=== PATIENT | female | born 1985 | race Caucasian/White ===

== ENCOUNTER 2020-05-24 13:21 | Emergency (ER) | payer OTHER, SELFPAY ==
[2020-05-24 14:18] VITALS: BP 133/88; PULSE 87; RESP 18; TEMP 36.5; O2SAT 100
[2020-05-24 15:27] VITALS: BP 122/78; PULSE 70; RESP 18; TEMP 36.7; O2SAT 99
[2020-05-24] MEDS: CYCLOBENZAPRINE HCL 10 MG TABLET PO (15:52)
[2020-05-24] MEDS: KETOROLAC 30 MG/ML VIAL (*BKC) IV PUSH (15:52)
[2020-05-24] MEDS: methylPREDNISolone SOD SUCC 125 MG VIAL IV PUSH (15:52)
--- NOTE | 2020-05-24 16:04 | ED.BACK ---
HPI - Back Pain/Injury General Chief Complaint: Back Pain/Injury Stated Complaint: sciatica in my leg Time Seen by Provider: 05/24/20 15:29 Source: patient Mode of arrival: ambulatory Limitations: no limitations History of Present Illness HPI Narrative: This is a 34 year old female who presents for evaluation right buttock pain. She reports she woke up with pain last night. She has sharp shooting pain to right buttock that radiates down her leg to right calf. She has taken Tylenol for her pain without relief. She had similar pain a few years ago and it was diagnosed as sciatica. She denies leg weakness, numbness or tingling. She denies recent back injury. She denies abdominal pain, nausea, vomiting or fever. Related Data Allergies Allergy/AdvReac Type Severity Reaction Status Date / Time No Known Allergies Allergy Verified 04/14/14 08:49 Review of Systems Review of Systems: All systems reviewed & are unremarkable except as noted in HPI and below PMFSH Past Medical History Medical History (Updated 05/25/20 @ 00:00 by Michael Bentley) Anxiety Depression Hypothyroid Surgical History Surgical History (Updated 05/24/20 @ 16:07 by Maty Olivera MD) H/O section Social History Social History (Updated 05/24/20 @ 16:08 by Maty Olivera MD) Smoking status: Never smoker Gender identity (if verbalized by the patient): Male Exam Const: General: alert Orientation/consciousness: patient oriented x3 Eyes: EOM: EOMs intact bilaterally Resp: Effort & Inspection: normal respiratory effort and no retractions Auscultation: clear to auscultation bilaterally Cardio: Rate: regular rate Rhythm: regular rhythm Heart sounds: no murmurs GI: GI Palp: Yes Soft to palpation, No Tenderness to palpation present (GI) and No Guarding due to palpation present (GI) Auscultation: normal bowel sounds Skin: General skin exam: normal color Rashes: no rashes Neuro: General: patient oriented x3, moves all extremities and CN's II-XI intact bilaterally Extrem: Other: FROM Psych: Mental Status: mental status grossly normal Affect: normal affect Course Reevaluation(s) Reevaluation #1: Patient is resting comfortably in bed. She is in no acute distress. I d iscussed with patient that is likely sciatica and I discussed discharge plan. Date: 05/24/20 Time: 17:52 Vital Signs Vital signs: Vital Signs Temperature 97.7 F 05/24/20 14:18 Pulse Rate 87 05/24/20 14:18 Respiratory Rate 18 05/24/20 14:18 Blood Pressure 133/88 05/24/20 14:18 Pulse Oximetry 100 05/24/20 14:18 Temperature 98.0 F 05/24/20 15:27 Pulse Rate 78 05/24/20 18:59 Respiratory Rate 18 05/24/20 18:59 Blood Pressure 132/78 05/24/20 18:59 Pulse Oximetry 99 05/24/20 18:59 Discharge Plan Discharge Clinical Impression: Sciatica Qualifiers: Laterality: right Qualified Code(s): M54.31 - Sciatica, right side Patient Disposition: Home, Self-Care Condition: Stable Instructions: Sciatica (ED), Back Pain (ED), Lower Back Exercises (ED) Additional Instructions: You need to follow up with your primary care physician for further evaluation . tAke medication as prescribed. Prescriptions: New ibuprofen 600 mg tablet 600 mg PO Q6H PRN (Reason: pain) Qty: 20 RF: 0 methylprednisolone [Medrol (Yordan)] 4 mg tablets,dose pack See Rx Instructions .ROUTE .COMPLEX Qty: 21 RF: 0 oxycodone-acetaminophen 5-325 mg tablet 1 tablet PO Q6H PRN (Reason: pain) Qty: 7 RF: 0 Follow-up/Referrals: Simi Quiroga DO [Physician] - PHYSICIAN,[employer] [Primary Care Provider] -
[2020-05-24] MEDS: HYDROmorphone HCL INJ (*CRX) 1 MG/ML SYR IV PUSH (16:56)
[2020-05-24 18:59] VITALS: BP 132/78; PULSE 78; RESP 18; O2SAT 99
== END 2020-05-24 19:05 | disposition home or self-care (01) ==
PROVIDERS: Emergency Provider General Practice
DX: M54.31 Sciatica, right side (principal)
CPT/HCPCS: 96374; 96375; 99284; A9270; J1170; J1885; J2930

== ENCOUNTER 2021-01-31 10:38 | Emergency (ER) | payer OTHER, SELFPAY ==
--- NOTE | ~2021-01-31 | US_ITS ---
EXAMINATION: US OB <=14 wk fetus w TV DATE: 01/31/2021 12:46 INDICATION: Bleeding during early first trimester of . TECHNIQUE: Real-time pelvic ultrasound utilizing both a transvaginal and transabdominal probe was pe rformed. The interpreting radiologist was not present for the study. COMPARISON: None. FINDINGS: The uterus measures 9.8 x 7.7 x 7.8 cm. The endometrial complex is thickened to 2.8 cm at the fundus with heterogeneous echogenicity. There is a 5 mm anechoic possible gestational sac with double decid ua sign evident along the margin of the thickened endometrial complex on the transverse and sagittal cine images which could represent an early gestational sac. The right ovary measures 3.2 x 2.4 x 1.9 cm. Vascular flow with arterial waveforms identified in the right ovary on color Doppler. The left ovary is not visualized. There is a trace amount of free fluid along side the right ovary. IMPRESSION: 1. Thickened heterogeneous endometrial complex with irregular hypoechoic regions which could represen t some hemorrhage within the endometrial canal. Suggestion of a 5 mm gestational sac at the periphera l margins of the endometrial complex with double decidua sign but no discernible internal yolk sac or pole likely due to very early stage of . Recommend follow-up with serial beta-hCG lev els with repeat imaging as clinically indicated. Reviewed, dictated and finalized at location A. INUING EDUCATION SPECIALIST IMPRESSION: 1. Thickened heterogeneous endometrial complex with irregular hypoechoic region s which could represent some hemorrhage within the endometrial canal. Suggestio n of a 5 mm gestational sac at the peripheral margins of the endometrial comple x with double decidua sign but no discernible internal yolk sac or pole l ikely due to very early stage of . Recommend follow-up with serial bet a-hCG levels with repeat imaging as clinically indicated.
[2021-01-31 10:55] VITALS: BP 126/91; PULSE 93; RESP 16; TEMP 36.8; O2SAT 99
[2021-01-31 11:30] LABS: Basophils Percent Auto 0.6 % (0.2-1.2); Eosinophils Absolute Auto 0.1 K/mm3 (0-0.3); Eosinophils Percent Auto 1.7 % (0-4.4); Hematocrit 34.1 % (37.0-47.0); Immature Granulocyte Absolute 0.03 K/mm3 (0.00-0.031); Immature Granulocyte Percent A 0.4 % (0-0.5); Lymphocytes Absolute Auto 2.41 K/mm3 (0.9-3.2); Lymphocytes Percent Auto 33.1 % (18.3-44.2); Mean Corpuscular HGB Conc 32.3 g/dl (32-36); Mean Corpuscular Hemoglobin 26.9 pg (26-34); Mean Corpuscular Volume 83.4 fl (80-100); Mean Platelet Volume 9.6 fl (7.4-10.4); Monocytes Absolute Auto 0.4 K/mm3 (0.1-0.6); Monocytes Percent Auto 5.1 % (2.6-8.5); Neutrophils Absolute Auto 4.3 K/mm3 (1.3-6.7); Neutrophils Percent Auto 59.1 % (45.5-73.1); Platelet Count Result 211 k/mm3 (150-375); Red Blood Count 4.09 M/mm3 (4.2-5.4); White Blood Count 7.3 K/mm3 (4.5-10.0)
[2021-01-31 11:41] LABS: Prothrombin Time 13.2 Seconds (11.1-14.7)
[2021-01-31 11:42] LABS: Partial Thromboplastin Time 28.1 SECONDS (22.3-36.8)
--- NOTE | 2021-01-31 11:56 | ED.PREGNANCY ---
HPI - General Chief complaint: Vaginal Bleeding Stated complaint: 5 wks preg vag bleed Time Seen by Provider: 01/31/21 10:54 Source: patient Mode of arrival: ambulatory Limitations: no limitations History of Present Illness HPI Narrative: This is a 35-year-old female that presents to the emergency department for abnormal uterine bleeding. Reports she started having light spotting on the ninth of this month. This has continued since. She saw an UTILITY ENGINEER yesterday who did a test that was positive. This was a new doctor for her. Her previous OB is no longer practicing. She had an order to get an ultrasound done, but was unable to make an appointment until the middle of February which concerned her and prompted her to be seen today. This would be her fourth . Denies pelvic pain. Related Data Home Medications Medication Instructions Recorded Confirmed No Home Medications 01/31/21 01/31/21 Allergies Allergy/AdvReac Type Severity Reaction Status Date / Time No Known Allergies Allergy Verified 01/31/21 11:47 Review of Systems Review of Systems: CONSTITUTIONAL: Denies fever GASTROINTESTINAL: Denies abdominal pain, nausea, vomiting GENITOURINARY: Denies dysuria All systems reviewed & are unremarkable except as noted in HPI and below PMFSH Past Medical History Medical History (Updated 01/31/21 @ 14:01 by Jenny Squires PA-C) Anxiety Depression Hypothyroid Surgical History Surgical History (Updated 05/24/20 @ 16:07 by Maty Olivera MD) H/O section Social History Social History (Updated 05/24/20 @ 16:08 by Maty Olivera MD) Smoking status: Never smoker Gender identity (if verbalized by the patient): Male Exam Narrative: GENERAL: Well-appearing, well-nourished, and in no acute distress. HEAD: Normocephalic, atraumatic. EYES: EOMI. CHEST: Clear to auscultation. No respiratory distress. No wheezes rales or rhonchi HEART: Regular rate and rhythm. No murmur heard. Normal peripheral pulses. ABDOMEN: Soft, nontender, nondistended, normal active bowel sounds. EXTREMITIES: Normal range of motion. No edema. SKIN: Warm, dry, no rash. NEURO: No focal deficits. Alert and oriented x3. PSYCH: Normal mood and affect PELVIC: Normal-appearing cervix, closed. Small amount of dark red blood in the vaginal vault Course Vital Signs Vital signs: Vital Signs Temperature 98.3 F 01/31/21 10:55 Pulse Rate 93 01/31/21 10:55 Respiratory Rate 16 01/31/21 10:55 Blood Pressure 126/91 H 01/31/21 10:55 Pulse Oximetry 99 01/31/21 10:55 Temperature 98.3 F 01/31/21 10:55 Pulse Rate 93 01/31/21 10:55 Respiratory Rate 16 01/31/21 10:55 Blood Pressure 126/91 H 01/31/21 10:55 Pulse Oximetry 99 01/31/21 10:55 MDM - OB/Uterine Contractions MDM Narrative Medical decision making narrative: Patient presents to the emergency department for abnormal uterine bleeding. Reports she has had spotting since the th of this month. She saw a new UTILITY ENGINEER yesterday and had a positive test. Was given a prescription for ultrasound, but was unable to obtain this for another couple of weeks which prompted her to be seen today. She is afebrile and nontoxic-appearing. Exam is benign. Her vitals are stable. CBC does show normocytic anemia with hemoglobin of 11. Patient is O+. Small amount of dark red blood in the vaginal vault. Obstetric ultrasound shows thickened heterogenous endometrial complex. Suggestion of a 5 mm gestational sac at the peripheral margins. No discernible yolk sac or pole. Likely due to early stage of . Recommend follow-up with serial beta hCG levels and imaging. Patient was updated on case findings. Patient will be given a prescription for quantitative beta-hCG in 48 hours. Was instructed to follow back up with her UTILITY ENGINEER. She is stable and felt appropriate for further outpatient evaluation. She was given warnings to
[2021-01-31 14:20] VITALS: BP 108/78; PULSE 80; RESP 16; O2SAT 100
== END 2021-01-31 14:20 | disposition home or self-care (01) ==
PROVIDERS: Physician Assistant; Emergency Provider Emergency Medicine
DX: O20.0 Threatened abortion (principal); Z3A.01 Less than 8 weeks gestation of pregnancy
CPT/HCPCS: 36415; 76801; 76817; 81025; 84702; 85025; 85461; 85610; 85730; 99284

== ENCOUNTER 2022-06-02 17:09 | Emergency (ER) | payer OTHER, SELFPAY ==
[2022-06-02 17:16] VITALS: BP 145/89; PULSE 116; RESP 16; TEMP 37.1; O2SAT 99
[2022-06-02 17:45] LABS: Basophils Absolute Auto 0.1 K/mm3 (0.0-0.1); Basophils Percent Auto 0.5 % (0.2-1.2); Eosinophils Absolute Auto 0.2 K/mm3 (0-0.3); Eosinophils Percent Auto 1.8 % (0-4.4); Hematocrit 39.1 % (37.0-47.0); Hemoglobin 13.2 g/dL (12.0-15.0); Immature Granulocyte Absolute 0.03 K/mm3 (0.00-0.031); Immature Granulocyte Percent A 0.3 % (0-0.5); Lymphocytes Percent Auto 27.8 % (18.3-44.2); Mean Corpuscular HGB Conc 33.8 g/dl (32-36); Mean Corpuscular Hemoglobin 30.1 pg (26-34); Mean Corpuscular Volume 89.3 fl (80-100); Mean Platelet Volume 9.7 fl (7.4-10.4); Monocytes Absolute Auto 0.7 K/mm3 (0.1-0.6); Monocytes Percent Auto 6.5 % (2.6-8.5); Neutrophils Absolute Auto 6.4 K/mm3 (1.3-6.7); Neutrophils Percent Auto 63.1 % (45.5-73.1); Platelet Count Result 202 k/mm3 (150-375); Red Blood Count 4.38 M/mm3 (4.2-5.4); Red Cell Distribution Width 14.6 % (11.5-14.5); White Blood Count 10.1 K/mm3 (4.5-10.0)
--- NOTE | 2022-06-02 19:37 | PC.NURSE ---
Notified chargeback specialist that ultrasound needs to be called in.
--- NOTE | 2022-06-02 20:08 | PC.NURSE ---
Pt and approached desk and states, Cancel Aniya Hanson . Pt ambulated out of department with steady gait. chief sustainability officer notified.
== END 2022-06-02 20:08 | disposition left against medical advice (07) ==
PROVIDERS: Emergency Provider Preventive Medicine Aerospace Medicine
DX: R10.9 Unspecified abdominal pain (principal)
CPT/HCPCS: 36415; 84702; 85025; 85461; 86850; 86900; 86901; 99199

== ENCOUNTER 2022-11-12 00:29 | Inpatient (IN) | payer OTHER, SELFPAY ==
--- NOTE | 2022-11-12 00:49 | PM.IMHP ---
H&P: HPI History of Present Illness Date/Time: 11/12/22 00:49 Chief Complaint: leaking Narrative: Aniya is a 37yo @ 30.2wks (JOSE R 01/19/23) who presented to L&D with complaints of leakage of fluid since midnight. She reports having abdominal pains and thinking she needed to use the restroom; but could not have a BM and then noticed she was continuously leaking clear fluid. She denies vaginal bleeding. No fevers, chills. She is feeling good movement. BS of 153. She has been receiving care at [place] and wishes to be transferred. Her is complicated by: - AMA on ASA - H/o (3rd >10yrs ago) - Class B DM; on fast acting 4//8u, long acting 40u qhs - Anxiety Review of Systems Constitutional: Constitutional: Denies chills, Denies fever(s) and Denies headache(s) Eyes: Eyes: Denies change in vision ENT: Denies headache(s) Cardiovascular: Cardiovascular: Denies chest pain and Denies dyspnea Respiratory: Respiratory: Denies dyspnea Genitourinary: Genitourinary: Denies abnormal vaginal bleeding and Reports vaginal discharge (clear fluid) Neurologic: Denies headache(s) Psychiatric: Psychiatric: Denies anxiety and Denies depression PMFSH Past Medical History Medical History Anxiety Depression Hypothyroid Surgical History Surgical History H/O section Social History Social History Smoking status: Never smoker Gender identity (if verbalized by the patient): Male Meds Home Medications and Allergies Home Medications Medication Instructions Recorded Confirmed Type No Home Medications 01/31/21 01/31/21 History Allergies Allergy/AdvReac Type Severity Reaction Status Date / Time No Known Allergies Allergy Verified 06/02/22 17:10 Exam Const: General: cooperative, no acute distress, anxious and obese Nutritional Appearance: obese Orientation/consciousness: patient oriented x3 Resp: Effort & Inspection: normal respiratory effort Cardio: Rate: regular rate GI: GI Palp: No abdominal tenderness : Other: FHT's: 150's/ mod mariely/ + accels/ occasional mild variable decels - cat 2, overall reassuring TOCO: irritability Cervix:1/thick/high Membranes: SROM, clear Presentation: cephalic Skin: General skin exam: normal color Neuro: General: patient oriented x3 Extrem: General: normal to inspection Psych: Appearance: grossly normal Affect: normal affect Attitude: cooperative Assessment and Plan Assessment and plan (1) premature rupture of membranes (PPROM) with unknown onset of labor: Code(s): O42.919 - premature rupture of membranes, unspecified as to length of time between rupture and onset of labor, unspecified trimester Status: Acute Plan - Pt grossly ruptured and desires transfer to [facility] as she has been seeking care there - [facility] contacted at 0107; called back at 0115 - Magnesium sulfate 6g loading, betamethasone 12mg IM, and ampicillin 2g IV - heart tones reassuring; pt not actively in labor and safe for transport-- Dr. Abbasi accepted the transfer at 0118 - GBS swab collected - Transfer consent form signed
[2022-11-12 01:03] LABS: Basophils Percent Auto 0.4 % (0.2-1.2); Eosinophils Absolute Auto 0.1 K/mm3 (0-0.3); Eosinophils Percent Auto 1.3 % (0-4.4); Hematocrit 36.7 % (37.0-47.0); Immature Granulocyte Absolute 0.05 K/mm3 (0.00-0.031); Immature Granulocyte Percent A 0.5 % (0-0.5); Lymphocytes Absolute Auto 3.36 K/mm3 (0.9-3.2); Lymphocytes Percent Auto 35.6 % (18.3-44.2); Mean Corpuscular HGB Conc 32.7 g/dl (32-36); Mean Corpuscular Hemoglobin 29.3 pg (26-34); Mean Corpuscular Volume 89.5 fl (80-100); Mean Platelet Volume 10.3 fl (7.4-10.4); Monocytes Absolute Auto 0.8 K/mm3 (0.1-0.6); Monocytes Percent Auto 8.7 % (2.6-8.5); Neutrophils Percent Auto 53.5 % (45.5-73.1); Platelet Count Result 175 k/mm3 (150-375); Red Cell Distribution Width 14.5 % (11.5-14.5); White Blood Count 9.4 K/mm3 (4.5-10.0)
[2022-11-12] MEDS: LACTATED RINGERS 1,000 ML 75 ML IV CONT (01:03)
[2022-11-12] MEDS: AMPICILLIN 2 GM/NS 100 ML 2 GM/100 ML BAG IVPB (01:04)
[2022-11-12] MEDS: BETAMETHASONE SOD PHOS/ACETATE 30 MG/5 ML VIAL 12 MG IM (01:04)
[2022-11-12] MEDS: MAGNESIUM SULF 4 GM/WATER100ML 4 GM/100 ML BAG 200 GM (01:09)
--- NOTE | 2022-11-12 01:11 | PC.NURSE ---
Magnesium 12g/h 300ml/h for a duration of 20min
[2022-11-12 01:14] VITALS: BP 128/70; PULSE 119
[2022-11-12 01:18] LABS: Glucose Point of Care 153 mg/dl (65-105)
[2022-11-12 01:30] VITALS: BP 127/76; PULSE 124
[2022-11-12] MEDS: MAGNESIUM SULF 20GM/WATER500ML 500 ML 300 MG (01:30)
[2022-11-12 01:45] VITALS: BP 121/66; PULSE 110
--- NOTE | 2022-11-12 01:46 | LDADM ---
This patient, Aniya Hanson, was admitted to Labor/Delivery/Recovery 106 on 11/12/22 at 00:29. Plans for labor, pain management and were discussed with patient. Patient/family oriented to hospital policies and general routines including ID bracelet, bed and alarms, visiting hours, pain management, procedures, bathroom and other care routines, personal items, smoking policy, room service/diet and guest tray routines, infant security routines, and visiting hours. Patient/Family are encouraged to report perceived risks to care and to ask questions if they do not understand what they are told or what they should do. See OBIX for further documentation.
--- NOTE | 2022-11-12 01:49 | PC.NURSE ---
0100: pateller reflexes +2 bilaterally, lung sounds clear in all lobes, head to toe assessment WNL
[2022-11-12 01:50] VITALS: BMI 30.2
--- NOTE | 2022-11-12 01:52 | PC.NURSE ---
pt presents to L&D with complaints of SROM that happened around 0000 at home. pt states she is not a patient of here but is a patient of [facility]. pt states she is a with a history of type 2 diabetes, GHTN, previous c/section. Rom Plus was positive, Dr. Fulton notified and [facility] accepted transfer. pt started on medications, see MAR. Head to toe assessment all WNL. Transport ETA 0210.
[2022-11-12] MEDS: AZITHROMYCIN 250 MG TABLET 1000 MG PO (01:54)
[2022-11-12 02:00] VITALS: BP 117/78; PULSE 99
[2022-11-12 02:05] VITALS: BP 128/71; PULSE 101
--- NOTE | 2022-11-12 02:20 | PC.NURSE ---
Transport team arrived and pt transferred to [facility]
[2022-11-12 15:36] LABS: Rapid Plasma Reagin Non-Reactive (NonReactive)
--- NOTE | 2022-11-14 13:44 | PM.TDS ---
Transfer Discharge Sum: Prov Provider Date of admission: 11/12/22 00:29 Primary care physician: MANAGER MATERIALS MANAGEMENT PHYSICIAN Admitting clinician: Malissa Fulton MD Attending physician on admission: Malissa Fulton Consults: 11/12/22 00:44 Consult to Anesthesiology Routine Reason for consultation: epidural Has provider been notified: Yes Attending physician on discharge: Malissa Fulton Discharging clinician: Malissa Fulton Anticipated date of transfer: 11/12/22 DS: Admitting Diagnosis Discharge Date 11/12/22 Admitting Diagnosis PPROM DS: Discharge Diagnosis Discharge Diagnosis (1) premature rupture of membranes (PPROM) with unknown onset of labor: Code(s): O42.919 - premature rupture of membranes, unspecified as to length of time between rupture and onset of labor, unspecified trimester Status: Acute Transfer Discharge Sum: Med Medications Active and Home Medications: Home Medications No Home Medications 01/31/21 [History Confirmed 01/31/21] Transfer Discharge Sum: Hosp Hospital Course Hospital course: Aniya is a 37yo @ 30.2wks (JOSE R 01/19/23) who presented to L&D with complaints of leakage of fluid since midnight. She reports having abdominal pains and thinking she needed to use the restroom; but could not have a BM and then noticed she was continuously leaking clear fluid. She denies vaginal bleeding. No fevers, chills. She is feeling good movement. BS of 153. She has been receiving care at [place] and wishes to be transferred. She was confirmed to grossly ruptured. She was examined and possibly, 1/thick/high (posterior/firm cervix). FHT's were reassuring. Her is complicated by: - AMA on ASA - H/o (3rd >10yrs ago) - Class B DM; on fast acting 4/4/8u, long acting 40u qhs - Anxiety Time Spent with Patient Time attestation: Total time spent providing and/or coordinating transfer services: Exam Const: General: cooperative, no acute distress, anxious and obese Nutritional Appearance: obese Orientation/consciousness: patient oriented x3 Resp: Effort & Inspection: normal respiratory effort Cardio: Rate: regular rate GI: GI Palp: No abdominal tenderness : Other: FHT's: 150's/ mod mariely/ + accels/ occasional mild variable decels - cat 2, overall reassuring TOCO: irritability Cervix:1/thick/high Membranes: SROM, clear Skin: General skin exam: normal color Neuro: General: patient oriented x3 Extrem: General: normal to inspection Psych: Appearance: grossly normal Affect: normal affect Attitude: cooperative
== END 2022-11-12 02:23 | disposition short-term general hospital (02) | DRG 566 ==
PROVIDERS: Admitting Provider Obstetrics & Gynecology; Visit Provider Obstetrics & Gynecology
DX: O42.913 Preterm premature rupture of membranes, unspecified as to length of time between rupture and onset of labor, third trimester (principal); Z3A.30 30 weeks gestation of pregnancy; O34.211 Maternal care for low transverse scar from previous cesarean delivery; E03.9 Hypothyroidism, unspecified; F32.A Depression, unspecified; F41.9 Anxiety disorder, unspecified; O99.343 Other mental disorders complicating pregnancy, third trimester; O99.283 Endocrine, nutritional and metabolic diseases complicating pregnancy, third trimester
CPT/HCPCS: 36415; 82948; 85025; 86592; 86850; 86900; 86901; 87081; A9270; J0290; J0702; J3475; J7120

== ENCOUNTER 2023-04-19 19:03 | Emergency (ER) | payer OTHER, SELFPAY ==
--- NOTE | ~2023-04-19 | XR_ITS ---
Clinical Indication: Chest pain PA and lateral views of the chest: Comparison: None Findings: The lungs are clear, without evidence of focal consolidation or pleural effusion. Cardiome diastinal silhouette is within normal limits. Bones and soft tissues are unremarkable. Impression: Normal chest. Reviewed, dictated and finalized at location . CAL PSYCHOTHERAPIST Impression: Normal chest.
--- NOTE | 2023-04-19 19:05 | ECG_ITS ---
Measurements Intervals Cut Off Rate: 83 P: 51 TN: 149 QRS: -19 QRSD: 98 T: 13 QT: 392 QTc: 462 Interpretive Statements SINUS RHYTHM NONSPECIFIC ST AND T-WAVE ABNORMALITY ABNORMAL ECG NO PREVIOUS ECG AVAILABLE FOR COMPARISON Electronically Signed On 04-20-2023 8:17:28 NOODLE MAKER by Shaq Adams M.D.
[2023-04-19 19:12] VITALS: BP 163/92; PULSE 89; RESP 18; TEMP 36.6; O2SAT 100
[2023-04-19 19:38] LABS: Basophils Percent Auto 0.6 % (0.2-1.2); Eosinophils Absolute Auto 0.2 K/mm3 (0-0.3); Eosinophils Percent Auto 2.2 % (0-4.4); Hematocrit 39.1 % (37.0-47.0); Hemoglobin 12.8 g/dL (12.0-15.0); Immature Granulocyte Absolute 0.03 K/mm3 (0.00-0.031); Immature Granulocyte Percent A 0.4 % (0-0.5); Lymphocytes Absolute Auto 2.65 K/mm3 (0.9-3.2); Lymphocytes Percent Auto 36.9 % (18.3-44.2); Mean Corpuscular HGB Conc 32.7 g/dl (32-36); Mean Corpuscular Hemoglobin 28.5 pg (26-34); Mean Corpuscular Volume 87.1 fl (80-100); Mean Platelet Volume 9.9 fl (7.4-10.4); Monocytes Absolute Auto 0.4 K/mm3 (0.1-0.6); Monocytes Percent Auto 5.7 % (2.6-8.5); Neutrophils Absolute Auto 3.9 K/mm3 (1.3-6.7); Neutrophils Percent Auto 54.2 % (45.5-73.1); Platelet Count Result 224 k/mm3 (150-375); Red Blood Count 4.49 M/mm3 (4.2-5.4); Red Cell Distribution Width 14.4 % (11.5-14.5); White Blood Count 7.2 K/mm3 (4.5-10.0)
[2023-04-19 19:48] LABS: Alanine Aminotransferase 27 U/L (6-35); Albumin Level 4.3 g/dL (3.5-5.1); Alkaline Phosphatase 76 U/L (38-126); Anion Gap 9 mmol/L (8-16); Aspartate Amino Transferase 29 U/L (14-36); Bilirubin,Total 0.4 mg/dL (0.2-1.3); Blood Urea Nitrogen 15 mg/dL (7-17); Calcium 9.5 mg/dL (8.4-10.2); Carbon Dioxide 24 mmol/L (22-30); Chloride 106 mmol/L (98-107); Estimated Glomerular Filt Rate > 60; Glucose 118 mg/dL (65-110); Lipase 88 U/L (23-300); Potassium 3.7 mmol/L (3.4-5.0); Sodium 139 mmol/L (137-145)
[2023-04-19 19:49] LABS: Prothrombin Time 13.7 Seconds (11.1-14.7)
[2023-04-19 19:50] LABS: Partial Thromboplastin Time 29.7 SECONDS (22.3-36.8)
[2023-04-19 20:00] LABS: Troponin I < 0.012 ng/mL (0.000-0.034)
[2023-04-19] MEDS: SODIUM CHLORIDE 0.9% IV 1,000 ML 999 ML IV CONT (21:10)
[2023-04-19 21:27] LABS: Appearance Urine Clear (Clear); Bilirubin Urine Negative (Negative); Blood Urine Negative (Negative); Color Urine Yellow (Yellow); Glucose Urine UA Negative (Negative); Ketones Urine Negative (Negative); Leukocyte Esterase Ur Negative LEU/UL (Negative); Nitrate Urine Negative (Negative); Protein Urine Negative (Negative); Specific Grav Ur 1.014 (1.001-1.035); Urobilinogen Urine 0.2 mg/dL (<2.0); pH Urine 6.5 (5.0-9.0)
[2023-04-19 21:32] LABS: Add Urine Microscopic? NO
[2023-04-19 21:35] LABS: Magnesium 1.9 mg/dL (1.6-2.3)
[2023-04-19 21:36] LABS: SPREG INTERNAL CONTROL Positive; Serum Qual hCG Negative
[2023-04-19 22:05] VITALS: BP 112/87; PULSE 71; RESP 18; O2SAT 100
[2023-04-19 22:06] LABS: Influenza A QL RT-PCR Negative (Negative); Influenza B QL RT-PCR Negative (Negative); RSV RNA, RT-PCR Negative (Negative); SARS-CoV-2 RNA PCR Negative (Negative)
[2023-04-19 23:09] LABS: Troponin I < 0.012 ng/mL (0.000-0.034)
--- NOTE | 2023-04-19 23:40 | ED.GENADULT ---
HPI - General Adult General Chief complaint: Dizziness Stated complaint: ARM PAIN,DIZZINESS Time Seen by Provider: 04/19/23 20:57 History of Present Illness HPI narrative: This is a 37-year-old female presenting ED with chief complaint of feeling off for 2 days. Patient has multiple complaints such as her eyelids feel heavy, her vision seems strange, she feels like she might pass out, she has palpitations and tingling in her fingers. Patient denies fever chills nausea vomiting diarrhea. No chest pain or difficulty breathing. Patient went to an urgent care and they told her to come the hospital was a thought she might be having a heart attack. Related Data Home Medications Medication Instructions Recorded Confirmed No Home Medications 01/31/21 01/31/21 Allergies Allergy/AdvReac Type Severity Reaction Status Date / Time No Known Allergies Allergy Verified 04/19/23 19:15 [facility] Past Medical History Medical History Anxiety Depression Hypothyroid Surgical History Surgical History H/O section Social History Social History Smoking status: Never smoker Lack of Transportation: No Lack of Food: Never True Current Housing: I Have Housing Concerned About Future Housing: No Difficulty Paying Gas/Electric Bills: No Difficulty Paying for Meds: No Currently Unemployed: No Education: High School Diploma/GED Difficulty w/ Childcare or Family Care: No Gender identity (if verbalized by the patient): Male Exam Narrative: APPEARANCE: No apparent distress. Head: atraumatic. EYES: EOMI, NOSE: Atraumatic NECK: Trachea midline RESPIRATORY: No increased rate of breathing , CTAB CARDIOVASCULAR: RRR, no peripheral edema ABDOMINAL: Non-distended MUSCULOSKELETAl: No obvious deformities NEURO: Alert. Cranial nerves 2-12 grossly intact. Sensation light touch, motor function cerebellar function intact for 4 extremities. Gait exam was normal. SKIN:: Warm, dry. Normal color PSYCHIATRIC: Normal affect, anxious appearing Course Vital Signs Vital signs: Vital Signs Temperature 97.9 F 04/19/23 19:12 Pulse Rate 89 04/19/23 19:12 Respiratory Rate 18 04/19/23 19:12 Blood Pressure 163/92 H 04/19/23 19:12 Pulse Oximetry 100 04/19/23 19:12 Oxygen Delivery Room Air 04/19/23 19:12 Temperature 97.9 F 04/19/23 19:12 Pulse Rate 71 04/19/23 22:05 Respiratory Rate 18 04/19/23 22:05 Blood Pressure 112/87 04/19/23 22:05 Pulse Oximetry 100 04/19/23 22:05 Oxygen Delivery Room Air 04/19/23 19:12 Medical Decision Making MDM Narrative Medical decision making narrative: -Course: 37-year-old female presenting chief complaint of feeling off and multiple subjective complaints. Objectively she is well-appearing with no findings on physical exam and stable VSS. Laboratory studies and imaging were also all negative. Patient will be discharged follow-up with primary care and return precautions. 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 Chest x-ray unremarkable. Viral swabs negative. Urine negative. Independent EKG interpretation: Rhythm [sinus], Rate [83], [place] -[normal], TN -[normal], QRS [narrow], QTC [normal], T waves -[negative for concerning inversions], ST Segments - [Negative for concerning elevations] Final interpretations: [Normal Sinus Rhythm] -Dx tests considered but not ordered: perc negative -Shared decision making / Disposition: discharged Vital Signs Vital Signs: Vital Signs Temperature 97.9 F 04/19/23 19:12 Pulse Rate 89
[2023-04-20] VITALS: BP 115/79; PULSE 65; RESP 17; O2SAT 98
== END 2023-04-20 00:05 | disposition home or self-care (01) ==
PROVIDERS: Student in an Organized Health Care Education/Training Program; Emergency Provider Emergency Medicine; PCP Family Medicine
DX: F41.9 Anxiety disorder, unspecified (principal); F32.A Depression, unspecified; E03.9 Hypothyroidism, unspecified; Z20.822 Contact with and (suspected) exposure to COVID-19
CPT/HCPCS: 36415; 71046; 80053; 81003; 81025; 83690; 83735; 84443; 84484; 84703; 85025; 85610; 85730; 87637; 93005; 96360; 96361; 99284; J7030